=== PATIENT | female | born 1955 | race Caucasian/White ===

== ENCOUNTER 2016-04-08 08:20 | Day surgery (SDC) | payer MEDICAID ==
[2016-04-08] MEDS ORDERED: FAMOTIDINE 20 MG TAB PO ONE (08:33)
[2016-04-08] MEDS ORDERED: ASPIRIN EC 325 MG TAB PO ONE (08:33)
[2016-04-08] MEDS ORDERED: DIAZEPAM 5 MG TAB PO ONE (08:33)
[2016-04-08] MEDS ORDERED: FAMOTIDINE 20 MG/NACL 50 ML IV ONE (08:33)
[2016-04-08] MEDS ORDERED: NS 1,000 ML IV ONE (08:33)
[2016-04-08] MEDS ORDERED: methylPREDNISolone SOD SUCC 125 MG/2 ML VIAL IVP ONE (08:33)
[2016-04-08] MEDS ORDERED: diphenhydrAMINE 25 MG CAP PO ONE (08:33)
--- NOTE | 2016-04-08 08:52 | CPEKG ---
Heart Rate: 76 RR Interval: 789 P-R Interval: 152 QRSD Interval: 84 QT Interval: 384 QTC Interval: 432 P [place]: 76 QRS [place]: 38 T Wave [place]: -22 EKG Severity - BORDERLINE ECG - EKG Impression: SINUS RHYTHM EKG Impression: BORDERLINE T ABNORMALITIES, DIFFUSE LEADS ?EARLY LVH SIGNS Electronically Signed By: Yfn Abad 08-Apr-2016 09:12:24
[2016-04-08 09:06] LABS: % IMMATURE GRANULYOCYTES 0.2 % (0.0-1.1); ABSOLUTE IMMATURE GRANULOCYTES 0.01 10^3/uL (0.00-0.10); ADD DIFF? NO; ADD MORPH? NO; ADD SCAN? NO; ATYPICAL LYMPHOCYTE FLAG 20 (0-99); FRAGMENT RBC FLAG 0 (0-99); HEMATOCRIT 39.3 % (38.0-47.0); HEMOGLOBIN 13.7 g/dL (12.6-16.3); LEFT SHIFT FLG 0 (0-99); LIPEMIA HEMOLYSIS FLAG 90 (0-99); MEAN CELL HEMOGLOBIN 32.2 pg (27.9-34.1); MEAN CELL HEMOGLOBIN CONCENTR. 34.9 g/dL (32.4-36.7); MEAN CELL VOLUME 92.3 fL (81.5-99.8); MEAN PLATELET VOLUME 9.9 fL (8.7-11.7); PLATELET CLUMPS FLAG 0 (0-99); PLATELET COUNT 227 10^3/uL (150-400); RED BLOOD CELL COUNT 4.26 10^6/uL (4.18-5.33); RED CELL DISTRIBUTION WIDTH 13.3 % (11.5-15.2)
[2016-04-08 09:29] LABS: INR 0.99 (0.83-1.16)
[2016-04-08] MEDS ORDERED: fentaNYL 100 MCG/2 ML INJ ONE (09:29)
[2016-04-08] MEDS ORDERED: LIDOCAINE 1% 30 ML SDV ONE (09:29)
[2016-04-08] MEDS ORDERED: MIDAZOLAM 2 MG/2 ML VIAL ONE (09:29)
[2016-04-08] MEDS ORDERED: IOPAMIDOL (ISOVUE 370) 100 ML BTL IV ONE (09:30)
[2016-04-08 09:42] LABS: ANION GAP 11 mEq/L (8-16); CARBON DIOXIDE 26 mEq/l (22-31); CHLORIDE 107 mEq/L (97-110); CHOLESTEROL 201 mg/dL (140-220); CHOLESTEROL/HDL RATIO 3.35 RATIO (1.00-4.44); CREATININE 0.8 mg/dL (0.6-1.0); GLOMERULAR FILTRATION RATE > 60; GLUCOSE 84 mg/dL (70-100); HIGH DENSITY LIPOPROTEIN 60 mg/dL (40-85); LDL/HDL RATIO 2.13 RATIO (1.00-3.22); LOW DENSITY LIPOPROTEIN 128 mg/dL (80-100); MAGNESIUM 1.9 mg/dL (1.6-2.3); NON-HIGH DENSITY LIPOPROTEIN 141 mg/dL (90-129); SODIUM 144 mEq/L (134-144); TRIGLYCERIDE 69 mg/dL (35-135); VERY LOW DENSITY LIPOPROTEINS 13 mg/dL (8-25)
[2016-04-08] MEDS ORDERED: ATROPINE SULFATE 1 MG/10 ML SYR ONE (10:56)
--- NOTE | 2016-04-08 11:14 | CPIP ---
[f rep st] INVASIVE CARDIAC PROCEDURE DATE OF PROCEDURE: 04/08/2016 PROCEDURES: 1. Left heart catheterization. 2. Right heart catheterization. 3. Coronary angiography. INDICATIONS: Unexplained dyspnea in a patient with EKG changes with Lexiscan infusion. Clinical con cern for cardiac dyspnea despite normal myocardial perfusion imaging. COMPLICATIONS: None. DESCRIPTION OF PROCEDURE: N.p.o. status was confirmed, informed consent obtained, time-out performed . The patient was brought to the catheterization laboratory and prepped and draped in sterile fashio n. Adequate conscious sedation was achieved with Versed and fentanyl IV. She did receive premedicat ion per protocol for an iodine allergy. 1% lidocaine was used for local anesthesia in the right femo ral region. Using modified Seldinger technique, a 6-[place] introducer sheath was placed in the right common femoral artery. A 7-[place] introducer sheath was placed in the right common femoral vein. S wan-Rosenda catheter was used for right heart pressures. JL4 and JR4 catheters were used for coronary a ngiography. Pigtail catheter was used for left ventricular pressure assessment. FINDINGS: 1. The left main is normal and bifurcates into the LAD and left circumflex system. There is no sign ificant disease in the left main, the LAD, its principal diagonal, or the circumflex and its 2 princi pal obtuse marginal. 2. The right coronary artery is dominant with no coronary disease. 3. Hemodynamics: RA pressure is 10. RV pressure 27/6. PA pressure 28/14. Wedge pressure is 12. Calculated cardiac output by the Zach method was 6.07 L/minute with the patient breathing room air. Cardiac index was 3.69 L/minute per sq m. Femoral arterial oxygen saturation 94.9%. PA saturation 7 6.7%. RV saturation 76.9%. RA saturation 73.2%. There was no significant intracardiac shunting. 4. Aortic pressure 140/83, LV pressure 130/10 with an end-diastolic pressure of 25. No significant aortic stenosis. Left ventriculography was not performed. CONCLUSIONS: 1. Normal coronary arteries in this right dominant system. 2. Normal left and right heart filling pressures. 3. Evaluate for noncardiac causes of dyspnea. 4. The patient's right femoral arteriotomy site was sealed with an Angio-Seal device. She was taken to the [facility] in stable condition and results discussed with the patient and her friend. /[id number]/MODL
== END 2016-04-08 15:31 | disposition home or self-care (01) ==
LOC: FCATH 08:20
PROVIDERS: ATTEND Internal Medicine Cardiovascular Disease
PROC: B2111ZZ Fluoroscopy of Multiple Coronary Arteries using Low Osmolar Contrast (ICD-10-PCS; principal; 2016-04-08)
PROC: B2161ZZ Fluoroscopy of Right and Left Heart using Low Osmolar Contrast (ICD-10-PCS; principal; 2016-04-08)
PROC: 4A023N8 Measurement of Cardiac Sampling and Pressure, Bilateral, Percutaneous Approach (ICD-10-PCS; principal; 2016-04-08)
DX: R06.09 Other forms of dyspnea (principal); Z95.0 Presence of cardiac pacemaker; Z87.442 Personal history of urinary calculi
CPT/HCPCS: C1760; J0461; J1644; J2250; J3010; Q9967

== ENCOUNTER → 2016-07-31 | Outpatient (CLI) | payer MEDICAID | LOC: FIMAGING 12:31 | PROVIDERS: ATTEND Physical Medicine & Rehabilitation Neuromuscular Medicine | DX: M50.321 Other cervical disc degeneration at C4-C5 level (principal) ==